=== PATIENT | female | born 1950 | race Two or more races ===

== ENCOUNTER 2017-06-21 10:06 | Inpatient (IN) | payer MEDICARE ==
[~2017-06-21] VITALS: Ht 147.3 cm; Wt 89.0 kg
[2017-06-21 12:01] LABS: HEMATOCRIT 42.9 % (34.6-47.8); HEMOGLOBIN 14.3 g/dL (11.7-16.4); WHITE BLOOD COUNT 14.4 x10^3/uL (3.4-10)
[2017-06-21 12:16] LABS: IS PT STATUS REG ER OR PRE ER? YES
[2017-06-21 12:18] LABS: ASPARTATE AMINO TRANSFERASE 12 U/L (15-37); BLOOD UREA NITROGEN 30 mg/dL (7-18)
[2017-06-21] MEDS ORDERED: AZITHROMYCIN 500 MG in SODIUM CHLORIDE 0.9% 250 ML IV ONE (13:00)
[2017-06-21] MEDS ORDERED: CEFTRIAXONE PMX 1GM/50ML 50 ML IVPB ONE (13:00)
[2017-06-21] MEDS ORDERED: CEFTRIAXONE PMX 1GM/50ML 50 ML ONE (13:15)
[2017-06-21] MEDS ORDERED: VALS1TAB22 PO (13:56)
[2017-06-21] MEDS ORDERED: CANA300T PO (13:56)
[2017-06-21] MEDS ORDERED: GLIP5TAB10 PO (13:56)
[2017-06-21] MEDS ORDERED: SITA1TBM4 PO (13:56)
[2017-06-21] MEDS ORDERED: SIMV40TA3 PO (13:56)
[2017-06-21] MEDS ORDERED: FENO160T PO (13:56)
[2017-06-21] MEDS ORDERED: VICTOZA PO (13:56)
[2017-06-21] MEDS ORDERED: INSU100V13 SQ (13:56)
[2017-06-21] MEDS ORDERED: GUAIFENESIN/DM 200-20MG, 10ML UDC PO PRN (14:30)
[2017-06-21] MEDS ORDERED: ACETAMINOPHEN 325 MG TABLET PO PRN (14:30)
[2017-06-21] MEDS ORDERED: DEXTROSE 50%, 50ML SYRINGE IVPush PRN (14:30)
[2017-06-21] MEDS ORDERED: GLUCAGON 1 MG IM PRN (14:30)
[2017-06-21] MEDS ORDERED: DEXTROSE 4 GM TAB.CHEW PO PRN (14:30)
[2017-06-21] MEDS: INSULIN ASPART 100 UNITS/ML, PEN SQ-INSULIN SCH ×2 (16:59→21:00)
[2017-06-21 17:07] VITALS: BP 112/68
[2017-06-21] MEDS ORDERED: morphine SULFATE 10 MG/ML, 1ML IVPush PRN (17:30)
[2017-06-21] MEDS: LACTATED RINGERS 1,000 ML IV SCH (17:49)
[2017-06-21 19:12] LABS: IS PT STATUS REG ER OR PRE ER? NO
[2017-06-21 19:39] VITALS: BP 95/56
[2017-06-21] MEDS: KETOROLAC 30 MG/1 ML IVPush PRN (20:54)
[2017-06-21] MEDS: SODIUM CHLORIDE FLUSH 10ML SYR IVF SCH (20:55)
[2017-06-21] MEDS ORDERED: INSULIN DETEMIR 100 UNITS/ML, PEN SQ-INSULIN SCH (21:00)
[2017-06-21] MEDS ORDERED: SODIUM CHLORIDE FLUSH 10ML SYR IVF SCH (21:00)
[2017-06-21] MEDS: SIMVASTATIN 40 MG TABLET PO SCH (22:15)
[2017-06-21] MEDS: FENOFIBRATE 145 MG TABLET PO SCH (22:15)
[2017-06-21] MEDS: DIPHENOXYLATE/ATROPINE TABLET PO PRN (22:17)
[2017-06-22 00:10] LABS: IS PT STATUS REG ER OR PRE ER? NO
[2017-06-22 01:04] VITALS: BP 93/54
[2017-06-22] MEDS: LACTATED RINGERS 1,000 ML IV SCH ×3 (02:15→16:50)
[2017-06-22] MEDS: INSULIN ASPART 100 UNITS/ML, PEN SQ-INSULIN SCH ×4 (07:00→21:30)
[2017-06-22 07:25] VITALS: BP 98/57
[2017-06-22] MEDS ORDERED: INSULIN DETEMIR 100 UNITS/ML, PEN SQ-INSULIN SCH ×2 (09:00)
[2017-06-22] MEDS: SODIUM CHLORIDE FLUSH 10ML SYR IVF SCH ×2 (09:18→21:32)
[2017-06-22] MEDS: AZITHROMYCIN 500 MG TABLET PO SCH (09:18)
[2017-06-22] MEDS: INSULIN DETEMIR 100 UNITS/ML, PEN SQ-INSULIN SCH (09:19)
[2017-06-22] MEDS: DIPHENOXYLATE/ATROPINE TABLET PO PRN ×2 (11:34→21:31)
[2017-06-22 12:25] LABS: BLOOD UREA NITROGEN 32 mg/dL (7-18)
[2017-06-22] MEDS ORDERED: CEFTRIAXONE PMX 2GM/50ML 50 ML IV SCH (13:00)
[2017-06-22] MEDS: HEPARIN 5,000 UNITS/ML, 1ML SQ SCH ×2 (13:04→21:31)
[2017-06-22] MEDS: CEFTRIAXONE 2,000 MG in DEXTROSE 5% 50 ML IV SCH (13:05)
[2017-06-22 13:54] VITALS: BP 101/65
[2017-06-22] MEDS ORDERED: OMNIPAQUE 350 MG/ML, 100ML BOTTLE ONE (17:22)
[2017-06-22 20:28] VITALS: BP 114/72
[2017-06-22] MEDS: KETOROLAC 30 MG/1 ML IVPush PRN (21:28)
[2017-06-22] MEDS: FENOFIBRATE 145 MG TABLET PO SCH (21:31)
[2017-06-22] MEDS: SIMVASTATIN 40 MG TABLET PO SCH (21:31)
[2017-06-23] MEDS: LACTATED RINGERS 1,000 ML IV SCH ×3 (01:22→18:00)
[2017-06-23 03:08] VITALS: BP 95/62
[2017-06-23 03:21] VITALS: BP 92/58
[2017-06-23 05:27] LABS: BLOOD UREA NITROGEN 21 mg/dL (7-18)
[2017-06-23] MEDS: HEPARIN 5,000 UNITS/ML, 1ML SQ SCH ×3 (05:27→19:52)
[2017-06-23 06:38] LABS: HEMATOCRIT 35.6 % (34.6-47.8); HEMOGLOBIN 11.8 g/dL (11.7-16.4); WHITE BLOOD COUNT 8.1 x10^3/uL (3.4-10)
[2017-06-23] MEDS: INSULIN ASPART 100 UNITS/ML, PEN SQ-INSULIN SCH ×4 (07:00→19:55)
[2017-06-23 07:47] VITALS: BP 91/60
[2017-06-23] MEDS: SODIUM CHLORIDE FLUSH 10ML SYR IVF SCH ×2 (08:02→19:52)
[2017-06-23] MEDS: INSULIN DETEMIR 100 UNITS/ML, PEN SQ-INSULIN SCH ×2 (09:00→19:55)
[2017-06-23] MEDS ORDERED: REGADENOSON 0.4 MG/5 ML SYRINGE ONE (12:10)
[2017-06-23 15:32] VITALS: BP 112/68
[2017-06-23] MEDS: DIPHENOXYLATE/ATROPINE TABLET PO PRN (16:05)
[2017-06-23] MEDS: CEFTRIAXONE 2,000 MG in DEXTROSE 5% 50 ML IV SCH (16:05)
[2017-06-23] MEDS: AZITHROMYCIN 500 MG TABLET PO SCH (16:05)
[2017-06-23] MEDS ORDERED: ERGOCALCIFEROL 50,000 UNIT CAPSULE PO SCH (18:30)
[2017-06-23] MEDS: SIMVASTATIN 40 MG TABLET PO SCH (19:51)
[2017-06-23] MEDS: FENOFIBRATE 145 MG TABLET PO SCH (19:51)
[2017-06-23] MEDS: KETOROLAC 30 MG/1 ML IVPush PRN (19:52)
[2017-06-23 20:00] VITALS: BP 102/61
[2017-06-24 02:00] VITALS: BP 110/65
[2017-06-24] MEDS: LACTATED RINGERS 1,000 ML IV SCH ×2 (02:00→10:09)
[2017-06-24] MEDS: HEPARIN 5,000 UNITS/ML, 1ML SQ SCH (04:27)
[2017-06-24 05:16] LABS: HEMATOCRIT 36.9 % (34.6-47.8); HEMOGLOBIN 12.2 g/dL (11.7-16.4); WHITE BLOOD COUNT 8.5 x10^3/uL (3.4-10)
[2017-06-24 07:33] VITALS: BP 114/68
[2017-06-24] MEDS: AZITHROMYCIN 500 MG TABLET PO SCH (10:05)
[2017-06-24] MEDS: DIPHENOXYLATE/ATROPINE TABLET PO PRN (10:05)
[2017-06-24] MEDS: INSULIN ASPART 100 UNITS/ML, PEN SQ-INSULIN SCH ×2 (10:06→12:13)
[2017-06-24] MEDS: INSULIN DETEMIR 100 UNITS/ML, PEN SQ-INSULIN SCH (10:06)
[2017-06-24] MEDS: SODIUM CHLORIDE FLUSH 10ML SYR IVF SCH (10:06)
[2017-06-24] MEDS ORDERED: CEFD300C37 PO (11:00)
[2017-06-24] MEDS ORDERED: AZIT500T5 PO (11:00)
[2017-06-24] MEDS ORDERED: ERGO500017 PO (11:00)
[2017-06-24] MEDS ORDERED: CYCL5TAB PO (11:03)
== END 2017-06-24 13:30 | disposition home or self-care (01) | DRG 871 ==
LOC: ED 11:03 → EDIP 13:19 → 4WST 14:41 → DCLOUNGE 06-24 13:08
PROVIDERS: ADMIT Hospitalist; ATTEND Hospitalist
DX: A41.9 Sepsis, unspecified organism (principal); J96.01 Acute respiratory failure with hypoxia; I95.9 Hypotension, unspecified; J18.1 Lobar pneumonia, unspecified organism; E66.01 Morbid (severe) obesity due to excess calories; Z68.41 Body mass index [BMI] 40.0-44.9, adult; N19 Unspecified kidney failure; K76.0 Fatty (change of) liver, not elsewhere classified; M94.0 Chondrocostal junction syndrome [Tietze]; R91.1 Solitary pulmonary nodule; E11.9 Type 2 diabetes mellitus without complications; E55.9 Vitamin D deficiency, unspecified; E78.1 Pure hyperglyceridemia; I10 Essential (primary) hypertension; N28.9 Disorder of kidney and ureter, unspecified; Z85.048 Personal history of other malignant neoplasm of rectum, rectosigmoid junction, and anus; Z79.899 Other long term (current) drug therapy; Z79.4 Long term (current) use of insulin
CPT/HCPCS: 36415; 71010; 71275; 76770; 78452; 78582; 80048; 80053; 81003; 82306; 82533; 82607; 82962; 83605; 83735; 83880; 84145; 84439; 84443; 84484; 85025; 85379; 85610; 85730; 87040; 87324; 93005; 93017; 93306; 93970; 96365; 96368; J0456; J0696; J1644; J1815; J1885; J2785; Q9967; A9502; A9540; A9558; C9898; J7050; J7120

== ENCOUNTER 2017-06-30 14:52 | Inpatient (IN) | payer MEDICARE ==
[~2017-06-30] VITALS: Ht 147.3 cm; Wt 90.0 kg
[~2017-06-30 14:52] MED LIST: AZIT500T5 PO; CANA300T PO; CEFD300C37 PO; CYCL5TAB PO; ERGO500017 PO; FENO160T PO; GLIP5TAB10 PO; INSU100V13 SQ; SIMV40TA3 PO; SITA1TBM4 PO; VALS1TAB22 PO; VICTOZA PO
[2017-06-30] MEDS ORDERED: ONDANSETRON 2MG/ML, 2ML IVPush ONE (15:30)
[2017-06-30] MEDS ORDERED: SODIUM CHLORIDE 0.9% 1,000ML IVBOLUS ONE ×2 (15:30→17:00)
[2017-06-30] MEDS ORDERED: SODIUM CHLORIDE FLUSH 10ML SYR IVF ONE (15:30)
[2017-06-30 15:31] LABS: HEMATOCRIT 35.8 % (34.6-47.8); HEMOGLOBIN 11.6 g/dL (11.7-16.4); WHITE BLOOD COUNT 26.8 x10^3/uL (3.4-10)
[2017-06-30 15:39] LABS: ASPARTATE AMINO TRANSFERASE 17 U/L (15-37); BLOOD UREA NITROGEN 23 mg/dL (7-18)
[2017-06-30] MEDS ORDERED: ONDANSETRON 2MG/ML, 2ML ONE (15:46)
[2017-06-30 15:52] LABS: IS PT STATUS REG ER OR PRE ER? YES
[2017-06-30 15:54] LABS: DIFF TOTAL CELLS COUNTED 100 CELL DIFF
[2017-06-30 15:56] LABS: POLYCHROMASIA 1+
[2017-06-30 15:58] LABS: VERIFY COUNTS? YES
[2017-06-30] MEDS ORDERED: NAPR220T77 PO (16:06)
[2017-06-30] MEDS ORDERED: ASPI-621 PO (16:06)
[2017-06-30] MEDS ORDERED: SODIUM CHLORIDE 0.9% 1,000 ML IV ONE (16:42)
[2017-06-30] MEDS ORDERED: CEFTRIAXONE PMX 1GM/50ML 50 ML IVPB ONE (17:30)
[2017-06-30] MEDS ORDERED: AZITHROMYCIN 500 MG in SODIUM CHLORIDE 0.9% 250 ML IVPB ONE (17:30)
[2017-06-30] MEDS ORDERED: ONDANSETRON 2MG/ML, 2ML IVPush PRN (18:00)
[2017-06-30] MEDS ORDERED: BISACODYL 10 MG SUPP PR PRN (18:00)
[2017-06-30] MEDS ORDERED: ERGOCALCIFEROL 50,000 UNIT CAPSULE PO SCH (18:00)
[2017-06-30] MEDS ORDERED: ACETAMINOPHEN 325 MG TABLET PO PRN (18:00)
[2017-06-30] MEDS ORDERED: VANCOMYCIN PER PHARMACY MC PRN (18:00)
[2017-06-30] MEDS ORDERED: POLYETHYLENE GLYCOL 17 GM PACKET PO PRN (18:00)
[2017-06-30] MEDS ORDERED: DOCUSATE 100 MG CAPSULE PO PRN (18:00)
[2017-06-30] MEDS ORDERED: ONDANSETRON ODT 4 MG PO PRN (18:00)
[2017-06-30] MEDS ORDERED: SODIUM CHLORIDE FLUSH 10ML SYR IVF PRN (19:00)
[2017-06-30] MEDS ORDERED: PHARMACOKINETIC CONSULTATION MC ONE (20:00)
[2017-06-30] MEDS ORDERED: PIPERACILLIN/TAZO/PMX 2.25GM 50 ML IV SCH (20:00)
[2017-06-30] MEDS ORDERED: PHARMACOKINETIC MONITORING MC PRN (20:00)
[2017-06-30] MEDS: GUAIFENESIN 200 MG TABLET PO SCH ×2 (20:18→21:00)
[2017-06-30] MEDS: HEPARIN 5,000 UNITS/ML, 1ML SQ SCH (20:19)
[2017-06-30] MEDS: SIMVASTATIN 40 MG TABLET PO SCH (20:19)
[2017-06-30] MEDS: FENOFIBRATE 145 MG TABLET PO SCH (20:19)
[2017-06-30] MEDS: PIPERACILLIN/TAZO/PMX 3.375GM 50 ML IV SCH (20:20)
[2017-06-30] MEDS: INSULIN ASPART 100 UNITS/ML, PEN SQ-INSULIN SCH ×2 (21:00→21:58)
[2017-06-30] MEDS ORDERED: VANCOMYCIN 1,200 MG in SODIUM CHLORIDE 0.9% 250 ML IV SCH (21:00)
[2017-06-30 21:37] LABS: IS PT STATUS REG ER OR PRE ER? NO
[2017-06-30] MEDS: INSULIN DETEMIR 100 UNITS/ML, PEN SQ-INSULIN SCH (21:59)
[2017-06-30] MEDS: SODIUM CHLORIDE 0.9% 1,000 ML IV SCH (22:00)
[2017-06-30 22:38] VITALS: BP 100/64
[2017-07-01] VITALS (14 sets, daily range): BP systolic 91–126; BP diastolic 50–80
[2017-07-01] MEDS ORDERED: LOPERAMIDE 2 MG CAPSULE PO ONE (02:30)
[2017-07-01] MEDS: HEPARIN 5,000 UNITS/ML, 1ML SQ SCH ×2 (02:35→10:00)
[2017-07-01] MEDS: PIPERACILLIN/TAZO/PMX 3.375GM 50 ML IV SCH ×4 (02:35→20:32)
[2017-07-01 03:15] LABS: HEMOGLOBIN 7.6 g/dL (11.7-16.4)
[2017-07-01 03:18] LABS: HEMATOCRIT 22.9 % (34.6-47.8)
[2017-07-01 03:23] LABS: ASPARTATE AMINO TRANSFERASE 11 U/L (15-37); BLOOD UREA NITROGEN 41 mg/dL (7-18)
[2017-07-01 03:31] LABS: IS PT STATUS REG ER OR PRE ER? NO
[2017-07-01] MEDS: INSULIN ASPART 100 UNITS/ML, PEN SQ-INSULIN SCH ×4 (07:00→20:35)
[2017-07-01] MEDS: GUAIFENESIN 200 MG TABLET PO SCH ×4 (07:11→20:33)
[2017-07-01] MEDS ORDERED: DIPHENHYDRAMINE 12.5MG/5ML, 10ML UDC PO ONE (08:30)
[2017-07-01 08:59] LABS: RAPID INFLUENZA A Negative (Negative); RAPID INFLUENZA B Negative (Negative)
[2017-07-01] MEDS: SODIUM CHLORIDE 0.9% 1,000 ML IV SCH ×2 (09:10→20:33)
[2017-07-01] MEDS: ASPIRIN 81 MG TABLET EC PO SCH (09:10)
[2017-07-01] MEDS: INSULIN DETEMIR 100 UNITS/ML, PEN SQ-INSULIN SCH ×2 (09:10→20:32)
[2017-07-01] MEDS: LOPERAMIDE 2 MG CAPSULE PO PRN ×2 (09:16→16:05)
[2017-07-01 10:55] LABS: HEMATOCRIT 23.5 % (34.6-47.8); HEMOGLOBIN 7.7 g/dL (11.7-16.4)
[2017-07-01 11:18] LABS: C-REACTIVE PROTEIN, QUANT 1.4 mg/dL (0.02-0.49); CARCINOEMBRYONIC ANTIGEN 1.16 ng/mL (0.0-3.00)
[2017-07-01] MEDS ORDERED: PANTOPRAZOLE 80 MG in SODIUM CHLORIDE 0.9% 50 ML IV ONE (12:00)
[2017-07-01] MEDS ORDERED: MIDAZOLAM 1 MG/ML, 5ML ONE ×2 (12:16)
[2017-07-01] MEDS ORDERED: FENTANYL PF 100 MCG/2ML ONE (12:16)
[2017-07-01] MEDS: PANTOPRAZOLE 80 MG in SODIUM CHLORIDE 0.9% 100 ML IV SCH (14:13)
[2017-07-01] MEDS: VANCOMYCIN 1,500 MG in SODIUM CHLORIDE 0.9% 250 ML IV SCH (14:53)
[2017-07-01] MEDS ORDERED: INSULIN ASPART 100 UNITS/ML, PEN SQ-INSULIN SCH (15:00)
[2017-07-01 15:21] LABS: HEMATOCRIT 28.4 % (34.6-47.8); HEMOGLOBIN 9.2 g/dL (11.7-16.4); WHITE BLOOD COUNT 13.1 x10^3/uL (3.4-10)
[2017-07-01 16:32] LABS: OCCBLD OBC PASS
[2017-07-01] MEDS: SIMVASTATIN 40 MG TABLET PO SCH (20:34)
[2017-07-01] MEDS: FENOFIBRATE 145 MG TABLET PO SCH (20:34)
[2017-07-01 23:37] LABS: HEMATOCRIT 29.7 % (34.6-47.8)
[2017-07-02 00:35] VITALS: BP 101/63
[2017-07-02] MEDS: PANTOPRAZOLE 80 MG in SODIUM CHLORIDE 0.9% 100 ML IV SCH ×3 (00:50→21:03)
[2017-07-02] MEDS: PIPERACILLIN/TAZO/PMX 3.375GM 50 ML IV SCH ×2 (04:35→08:39)
[2017-07-02 04:57] LABS: HEMATOCRIT 29.5 % (34.6-47.8); HEMOGLOBIN 9.9 g/dL (11.7-16.4)
[2017-07-02 05:41] LABS: BLOOD UREA NITROGEN 31 mg/dL (7-18)
[2017-07-02] MEDS: GUAIFENESIN 200 MG TABLET PO SCH ×4 (06:41→20:06)
[2017-07-02 06:45] VITALS: BP 93/47
[2017-07-02] MEDS: INSULIN ASPART 100 UNITS/ML, PEN SQ-INSULIN SCH ×4 (07:00→20:05)
[2017-07-02] MEDS: INSULIN DETEMIR 100 UNITS/ML, PEN SQ-INSULIN SCH ×2 (07:29→20:04)
[2017-07-02] MEDS: VANCOMYCIN 1,500 MG in SODIUM CHLORIDE 0.9% 250 ML IV SCH (09:32)
[2017-07-02] MEDS: ASPIRIN 81 MG TABLET EC PO SCH (09:32)
[2017-07-02] MEDS ORDERED: MAGNESIUM SULFATE PMX 4GM/100M 100 ML IV ONE (10:00)
[2017-07-02 10:04] LABS: HEMATOCRIT 30.4 % (34.6-47.8); HEMOGLOBIN 10.2 g/dL (11.7-16.4)
[2017-07-02] MEDS: SODIUM CHLORIDE 0.9% 1,000 ML IV SCH (11:26)
[2017-07-02 13:36] VITALS: BP 115/64
[2017-07-02] MEDS: PIPERACILLIN/TAZO/PMX 4.5GM 100 ML IV SCH ×2 (16:21→22:18)
[2017-07-02 19:11] VITALS: BP 120/71
[2017-07-02] MEDS: FENOFIBRATE 145 MG TABLET PO SCH (20:04)
[2017-07-02] MEDS: SIMVASTATIN 40 MG TABLET PO SCH (20:07)
[2017-07-03 01:00] VITALS: BP 100/61
[2017-07-03 03:00] LABS: HEMATOCRIT 28.7 % (34.6-47.8); WHITE BLOOD COUNT 11.7 x10^3/uL (3.4-10)
[2017-07-03 03:13] LABS: BLOOD UREA NITROGEN 20 mg/dL (7-18)
[2017-07-03] MEDS: VANCOMYCIN 1,500 MG in SODIUM CHLORIDE 0.9% 250 ML IV SCH (03:23)
[2017-07-03] MEDS: SODIUM CHLORIDE 0.9% 1,000 ML IV SCH (03:23)
[2017-07-03] MEDS: PIPERACILLIN/TAZO/PMX 4.5GM 100 ML IV SCH ×2 (05:57→10:08)
[2017-07-03] MEDS: GUAIFENESIN 200 MG TABLET PO SCH ×2 (05:58→10:08)
[2017-07-03] MEDS: INSULIN ASPART 100 UNITS/ML, PEN SQ-INSULIN SCH ×2 (07:00→12:20)
[2017-07-03 07:05] VITALS: BP 99/63
[2017-07-03] MEDS: PANTOPRAZOLE 80 MG in SODIUM CHLORIDE 0.9% 100 ML IV SCH (07:29)
[2017-07-03] MEDS: ASPIRIN 81 MG TABLET EC PO SCH (10:07)
[2017-07-03] MEDS: INSULIN DETEMIR 100 UNITS/ML, PEN SQ-INSULIN SCH (10:07)
[2017-07-03 12:22] VITALS: BP 121/71
[2017-07-03] MEDS ORDERED: PANT40TA3 PO (13:26)
[2017-07-03] MEDS ORDERED: DOXY100T PO (13:31)
[2017-07-03] MEDS ORDERED: PANTOPROZOLE 40MG TABLET PO ONE (14:00)
== END 2017-07-03 15:39 | disposition home or self-care (01) | DRG 871 ==
LOC: ED 16:16 → EDIP 17:32 → 4EST 19:06
PROVIDERS: ADMIT Internal Medicine; ATTEND Internal Medicine
PROC: 0T9B70Z Drainage of Bladder with Drainage Device, Via Natural or Artificial Opening (ICD-10-PCS; 2017-06-30)
PROC: 0DB68ZX Excision of Stomach, Via Natural or Artificial Opening Endoscopic, Diagnostic (ICD-10-PCS; 2017-07-01)
PROC: 30233N1 Transfusion of Nonautologous Red Blood Cells into Peripheral Vein, Percutaneous Approach (ICD-10-PCS; principal; 2017-07-01 15:00)
DX: A41.9 Sepsis, unspecified organism (principal); J18.9 Pneumonia, unspecified organism; N17.9 Acute kidney failure, unspecified; E11.22 Type 2 diabetes mellitus with diabetic chronic kidney disease; K25.4 Chronic or unspecified gastric ulcer with hemorrhage; E11.65 Type 2 diabetes mellitus with hyperglycemia; D62 Acute posthemorrhagic anemia; K76.0 Fatty (change of) liver, not elsewhere classified; E86.0 Dehydration; Z68.41 Body mass index [BMI] 40.0-44.9, adult; R71.0 Precipitous drop in hematocrit; E55.9 Vitamin D deficiency, unspecified; E66.9 Obesity, unspecified; E78.5 Hyperlipidemia, unspecified; N18.2 Chronic kidney disease, stage 2 (mild); E78.1 Pure hyperglyceridemia; I12.9 Hypertensive chronic kidney disease with stage 1 through stage 4 chronic kidney disease, or unspecified chronic kidney disease; M54.9 Dorsalgia, unspecified; K52.9 Noninfective gastroenteritis and colitis, unspecified; Z79.4 Long term (current) use of insulin; Z82.49 Family history of ischemic heart disease and other diseases of the circulatory system; Z83.3 Family history of diabetes mellitus; Z85.048 Personal history of other malignant neoplasm of rectum, rectosigmoid junction, and anus; Z87.891 Personal history of nicotine dependence; Z90.49 Acquired absence of other specified parts of digestive tract; Z90.710 Acquired absence of both cervix and uterus
CPT/HCPCS: 36415; 71010; 71020; 80048; 80053; 80202; 81003; 82272; 82378; 82962; 83036; 83605; 83735; 84100; 84145; 84484; 85014; 85018; 85025; 85610; 85651; 85730; 86140; 86850; 86900; 86923; 87040; 87324; 87400; 88305; 93005; 96361; 96365; 96375; 99152; 99153; J0456; J1644; J1815; J2250; J2405; J2543; J3010; J3370; C9113; J3475; J7030; J7050; P9016

== ENCOUNTER → 2018-08-26 | Outpatient (CLI) | payer MEDICARE ==
[~2018-08-26] MED LIST changes: +ASPI81TA45 PO; +DOXY100T PO; +NAPR220T77 PO; +PANT40TA3 PO
== END | disposition home or self-care (01) ==
LOC: CFH 13:10
PROVIDERS: ATTEND Family Medicine
DX: Z12.31 Encounter for screening mammogram for malignant neoplasm of breast (principal)
CPT/HCPCS: 77067

== ENCOUNTER → 2018-09-16 | Outpatient (CLI) | payer MEDICARE | END | disposition home or self-care (01) | LOC: LAB 15:28 | PROVIDERS: ATTEND Family Medicine | DX: K25.4 Chronic or unspecified gastric ulcer with hemorrhage (principal); K59.00 Constipation, unspecified; C19 Malignant neoplasm of rectosigmoid junction; K31.89 Other diseases of stomach and duodenum; E11.9 Type 2 diabetes mellitus without complications; E66.9 Obesity, unspecified; Z90.49 Acquired absence of other specified parts of digestive tract | CPT/HCPCS: 74018 ==